=== PATIENT | female | born 1940 | race Caucasian/White ===

== ENCOUNTER 2018-04-28 14:59 | Emergency (ER) | payer MEDICARE ==
--- NOTE | 2018-04-28 15:58 | RAD ---
RIGHT FOOT THREE VIEW 04/28/18 HISTORY: Foot injury. COMPARISON: None. FINDINGS: A Lisfranc interval appears to be maintained. Mild dorsal and lateral soft tissue swelling. Moderate sized plantar calcaneal spur. Mild midfoot degenerative changes. Moderate degenerative disease of the talar medial cuneiform joint. Mild lateral subluxation of the hallux sesamoids. Mild narrowing of the great toe metatarsophalangea l joint. IMPRESSION: Chronic findings. No acute displaced fracture is appreciated. POS: [facility]ET
== END 2018-04-28 16:15 | disposition home or self-care (01) ==
LOC: SCSER 14:59
DX: S90.211A Contusion of right great toe with damage to nail, initial encounter (principal); G40.909 Epilepsy, unspecified, not intractable, without status epilepticus; Z79.899 Other long term (current) drug therapy; W20.8XXA Other cause of strike by thrown, projected or falling object, initial encounter

== ENCOUNTER 2018-09-01 09:56 | Outpatient (CLI) | payer MEDICARE ==
--- NOTE | 2018-09-13 13:31 | MMO ---
Bilateral MAMMO Bilat Screen [facility]. CLINICAL HISTORY: Patient is 77 years old and is seen for screening. The patient has no family history of breast cancer. The patient has no personal history of cancer. VIEWS: The views performed were: bilateral craniocaudal and bilateral mediolateral oblique. FILMS COMPARED: The present examination has been compared to prior imaging studies performed at [place], [place] on 11/13/2008, 11/19/2009, 12/16/2010 and 06/22/2013. This study has been interpreted with the assistance of computer-aided detection. MAMMOGRAM FINDINGS: There are scattered fibroglandular densities. There are no suspicious masses, suspicious calcifications, or new areas of architectural distortion. IMPRESSION: THERE IS NO MAMMOGRAPHIC EVIDENCE OF MALIGNANCY. A ROUTINE FOLLOW-UP MAMMOGRAM IN 1 YEAR IS RECOMMENDED. ACR BI-RADS Category 1 - Negative MAMMOGRAPHY NOTE: 1. A negative mammogram report should not delay a biopsy if a dominant of clinically suspicious mass is present. 2. Approximately 10% to 15% of breast cancers are not detected by mammography. 3. Adenosis and dense breasts may obscure an underlying neoplasm. Reported by: ESTHER TORRES MD Electonically Signed: [id number]
== END 2018-09-01 09:57 | disposition home or self-care (01) ==
LOC: SCSMAMMO 09:56
PROVIDERS: ATTEND Nurse Practitioner Adult Health
DX: Z12.31 Encounter for screening mammogram for malignant neoplasm of breast (principal)
CPT/HCPCS: 77067

== ENCOUNTER 2018-10-18 09:00 | Outpatient (CLI) | payer MEDICARE ==
--- NOTE | 2018-10-18 11:02 | BD ---
BONE DENSITOMETRY USING DEXA: Date: 10/18/18 HISTORY: Postmenopausal screening for osteoporosis. Asymptomatic menopausal state. FINDINGS: Lumbar Spine: BMD (g/cm2) L1 0.865 T-Score: -1.1 Z-Score: 1.0 L2 0.873 T-Score: -1.4 Z-Score: 1.0 L3 0.837 T-Score: -2.2 Z-Score: 0.3 L4 0.808 T-Score: -2.3 Z-Score: 0.3 L1-L4 0.844 T-Score: -1.8 Z-Score: 0.6 Femoral Neck: 0.661 T-Score: -1.7 Z-Score: 0.4 Total Femur: 0.850 T-Score: -0.8 Z-Score: 1.1 The 10 year fracture risk for a major osteoporotic is 27% and for a hip fracture is 13%. IMPRESSION: Osteopenia. POS: [place]
== END 2018-10-18 09:01 | disposition home or self-care (01) ==
LOC: BICMAMMO 09:00
PROVIDERS: ATTEND Psychiatry & Neurology Psychiatry
DX: Z13.820 Encounter for screening for osteoporosis (principal); M85.89 Other specified disorders of bone density and structure, multiple sites; Z78.0 Asymptomatic menopausal state
CPT/HCPCS: 77080